=== PATIENT | female | born 1985 | race Caucasian/White ===

== ENCOUNTER 2016-11-06 06:54 | Day surgery (SDC) | payer OTHER ==
[~2016-11-06] VITALS: Ht 157.5 cm; Wt 101.0 kg
[~2016-11-06 06:54] MED LIST: CLEOCIN300 MG PO; MOTRIN400 MG PO; NAPROSYN500 MG PO
[2016-11-06 07:33] VITALS: BP 156/85
[2016-11-06 09:58] VITALS: BP 128/85
[2016-11-06 11:00] VITALS: BP 136/81
== END 2016-11-06 11:10 | disposition home or self-care (01) ==
LOC: SDC 06:54
PROC: 0UBC7ZX Excision of Cervix, Via Natural or Artificial Opening, Diagnostic (ICD-10-PCS; principal; 2016-11-06)
DX: D06.0 Carcinoma in situ of endocervix (principal); D06.1 Carcinoma in situ of exocervix; F17.200 Nicotine dependence, unspecified, uncomplicated
CPT/HCPCS: 88307; J0131; J1100; J1170; J1885; J2250; J2405; J3010